=== PATIENT | female | born 1965 | race Caucasian/White ===

== ENCOUNTER 2022-07-19 11:45 | Outpatient (CLI) | payer BC, SELFPAY | END 2022-07-19 11:46 | disposition home or self-care (01) | LOC: LKVREF 11:46 | PROVIDERS: PCP Physician Assistant Medical; Visit Provider Physician Assistant Medical | DX: Z00.00 Encounter for general adult medical examination without abnormal findings (principal); Z13.6 Encounter for screening for cardiovascular disorders; Z13.0 Encounter for screening for diseases of the blood and blood-forming organs and certain disorders involving the immune mechanism | CPT/HCPCS: 80061 ==

== ENCOUNTER 2023-07-05 08:21 | Outpatient (CLI) | payer BC, SELFPAY | END 2023-07-05 08:22 | disposition home or self-care (01) | LOC: NFLDREF 07-10 08:13 | PROVIDERS: PCP Physician Assistant Medical; Referring Provider Physician Assistant Medical; Visit Provider Physician Assistant Medical | DX: Z13.228 Encounter for screening for other metabolic disorders (principal); Z13.220 Encounter for screening for lipoid disorders; Z13.29 Encounter for screening for other suspected endocrine disorder; Z13.21 Encounter for screening for nutritional disorder | CPT/HCPCS: 80048; 80061; 82306; 84443 ==

== ENCOUNTER 2023-09-27 13:36 | Outpatient (CLI) | payer BC, SELFPAY ==
--- NOTE | 2023-09-27 14:00 | CRLHL7_ITS ---
For Patients: As a result of the Century Cures Act, medical imaging exams and procedure reports are released immediately into your electronic medical record. You may view this report before your referring provider. If you have questions, please contact your health care provider. BILATERAL SCREENING MAMMOGRAM WITH COMPUTER-AIDED DETECTION AND TOMOSYNTHESIS TECHNIQUE: CC, MLO and Implant displaced views were obtained. These mammographic images have been obtained using full-field digital technique. These mammographic images were interpreted with the benefit of computer-aided detection. Breast Tomosynthesis was used in this interpretation. COMPARISON FILM: Baseline. FINDINGS: There are scattered areas of fibroglandular density IMPRESSION: There is no radiographic evidence for malignancy. ASSESSMENT: BI-RADS Category 2: Benign RECOMMENDATION: Routine screening mammogram in 1 year. A lay language report of this examination will be provided to the patient. JURGEN RAMSEY M.D. Diagnostic/Nuclear Medicine Radiologist [email or web address] DANIEL:[email or web address] Transcribed: 12:46 p.mTrinidad zuleta/Dictated by: Jurgen Ramsey MD @ 10/03/2023 8:39:00 AM (Electronically Signed)
== END 2023-09-27 13:37 | disposition home or self-care (01) ==
LOC: MAMMO 13:38
PROVIDERS: PCP Physician Assistant Medical; Visit Provider Physician Assistant Medical
DX: Z12.31 Encounter for screening mammogram for malignant neoplasm of breast (principal)
CPT/HCPCS: 77063; 77067

== ENCOUNTER 2024-06-11 08:28 | Outpatient (CLI) | payer BC, SELFPAY | END 2024-06-11 08:29 | disposition home or self-care (01) | LOC: NFLDREF 06-13 04:27 | PROVIDERS: PCP Physician Assistant Medical; Referring Provider Physician Assistant Medical; Visit Provider Physician Assistant Medical | DX: E78.5 Hyperlipidemia, unspecified (principal); E55.9 Vitamin D deficiency, unspecified; Z13.29 Encounter for screening for other suspected endocrine disorder | CPT/HCPCS: 80053; 80061; 82306; 84443 ==